=== PATIENT | female | born 1985 | race Two or more races ===

== ENCOUNTER → 2025-01-14 | Outpatient (CLI) | payer OTHER, SELFPAY ==
[2025-01-19 14:08] LABS: HPV APTIMA, High Risk Negative (Negative)
== END | disposition home or self-care (01) ==
LOC: LABSPEC 12:01
PROVIDERS: Referring Provider Nurse Practitioner Family; Visit Provider Nurse Practitioner Family
DX: Z12.4 Encounter for screening for malignant neoplasm of cervix (principal)
CPT/HCPCS: 87624; 88175; G0145

== ENCOUNTER → 2025-01-28 | Outpatient (CLI) | payer OTHER, SELFPAY ==
--- NOTE | 2025-01-28 12:15 | BI_ITS ---
EXAM: SCRN MAMM (CAD)W/YARITZA BILAT DATE: 01/28/2025 CLINICAL HISTORY: F, Age 39 y/o , SCREEN FOR BREAST CANCER TECHNIQUE: SCRN MAMM (CAD)W/YARITZA BILAT COMPARISON: Prior exam(s) dated 10/05/2023, 10/03/2023. FINDINGS: TISSUE DENSITY: The breasts are heterogeneously dense, which may obscure small masses. The mammogram demonstrates that the patient has dense breasts. Supplemental screening with whole breast ultrasound or MRI may be considered for further evaluation. Bilateral Breast Mammographic Findings: No significant masses, calcifications or other abnormalities are identified. BI/SCRN MAMM (CAD)W/YARITZA BILAT IMPRESSION: There is no mammographic evidence of malignancy. OVERALL FINAL ASSESSMENT BI-RADS 1: NEGATIVE. RECOMMENDATION: Routine annual follow-up in 1 Year A letter with findings and recommendations will be mailed to the patient. Reading Location: [id number]
--- OUTSIDE RECORDS SUMMARY | 2025-01-28 20:29 | XMS RPT_ITS | CCD ---
Author Organization [facility] Inform ion Partnership [facility] Care Team Providers Care Relaster Name Role Phone ADELFO VELASCO-KRISTY, FELISHA Newell Primary Care Physician GISELA VELASCO-CHRISTOPHER, ELISABETH Newell Attending [place] vailable ADELFO MONIQUEN-REFUGE MANAGER, FELISHA Newell Primary Care Unavai labshaun EMANUEL APRN-KRISTY, FELISHA Newell Attending Unavai lable ADELFO MONIQUEN-REFUGE MANAGER, FELISHA Newell Primary Care Unavai lable GISELA VELASCO-CHRISTOPHER, ELISABETH Newell Attending [place] vailable ADELFO MONIQUEN-REFUGE MANAGER, FELISHA Newell Primary Care Unavai lable Scarlett INMAN-Gosia Fuentes Attending Provider Scarlett HAT BAND ATTACHER-CGosia Referring Provider Gosia Pantoja Attending Unavailable Gosia Pantoja Referring Unavailable Gosia Pantoja Attending Unavailable Care Physician, No Primary Primary Care Unava ilable Gosia Pantoja Referring Unavailable Gosia Pantoja Attending Unavailable Allergies Allergy Classification Reported Allergen(s) Allergy Type Date of Onset Reaction(s) Facility (5 sources) Amoxicillin; Translations: [AMOXICILLIN] Drug Allergy 7 Weal (disorder) [facility] Repository (5 sources) Penicillins; Translations: [PENICILLINS] Propensity to adverse reactions to drug (disorder) 7 Hives [facility] Repository Medications Current Medications Medication Drug Class(es) Dates Sig (Normalized) Sig (Original) fexofenadine hydrochloride 180 mg oral tablet (3 sources) Histamine-1 Receptor Antagonist Start: 10-31-2024 take 1 tablet by mouth once daily Fexofenadine (Allergy Relief (Fexofenadine)) 180 mg tablet Active 180 mg PO daily October 31, 2024 12:00am Start: 05-14-2023 Maira 24 Ricci r Allergy oral tablet Dose : 180 mg = 1 tab(s), Oral, Daily, # 30 tab(s), 0 Refill(s) Start Date: 05/14/23 Status: Ordered Multivitamin tablet (2 sources) Start: 10-31-2024 Multivitamin t ablet Active 1 {tbl} PO EVERY MORNING October 31, 2024 12:00am One Daily Essential Multiple Vitamins with Minerals oral tablet (1 source) Start: 05-14-2023 take 1 tablet by mouth once daily One Daily Essential Multiple Vitamins with Minerals oral tablet Oral, qDay, 0 Refill(s) Start Date: 05/14/23 Status: Ordered Problems Problem Classification Problem Date Documented Da te Episodic/Chronic Other screening for suspected conditions (not mental disorders or infectious disease) (3 sources) Encounter for screening mammogram for malignant neoplasm of breast; Translations: [Encounter for screening for malignant neoplasm of cervix] Onset: 01-23-2025 Episodic Other upper respiratory disease (1 source) Allergic rhinitis 05-14-2023 Chronic Residual codes; unclassified (4 sources) Family history of breast cancer; Translations: [Family history of malignant neoplasm of breast] 01-14-2025 Episodic Comment on above: Triple (-) form. Residual codes; unclassified (1 source) Family history of malignant neoplasm of breast; Translations: [Family history of malignant neoplasm of breast] Onset: 01-26-2025 Episodic Unclassified (1 source) Breast feeding (infant) (observable entity) 10-23-2015 Comment on above: [facility] feeding Status documented as Yes on Admission Unclassified (1 source) Patient encounter status 05-14-2023 Results Test Name Value Interpretation Reference Range Facility PAP IG HPV APTIMA 16/18,45on 01-19-2025 ADEQ Comment Normal . [facility] Comment on above: Order Comment: Speci men Comment: [id number] Specimen Comment: No. of containers..01 ThinPrep Vial Result Comment: Sati sfactory for evaluation. Endocervical and/or squamous metaplastic cells (endocervical component) are present. Performed By: #### L 7400.0280 #### [facility] [place], [address] COMM . Normal . [facility] Comment on above: Order Comment: Speci men Comment: [id number] Specimen Comment: No. of containers..01 ThinPrep Vial Performed By: #### L 7400.0280 #### [facility] [address] [place], [place], [id number] COMMENT Comment Normal . [facility] Comment on above: Order Comment: Speci men Comment: [id number] Specimen Comment: No. of containers..01 ThinPrep Vial Result Comment: This liquid based ThinPrep(R) pap test was screened with the use of an image guided system. Performed By: #### L 7400.0280 #### [facility] [address] [place], [place], [id number] DIAG Comment Normal . [facility] Comment on above: Order Comment: Speci men Comment: [id number] Specimen Comment: No. of containers..01 ThinPrep Vial Result Comment: NEGA TIVE FOR INTRAEPITHELIAL LESION OR MALIGNANCY. THIS SPECIMEN WAS RESCREENED PART OF OUR TITLE I PARAPROFESSIONAL PROGRAM. Performed By: #### L 7400.0280 #### [facility] [address] [place], [place], [id number] HPV APTIMA, HR Negative Normal Negative [facility] Comment on above: Order Comment: Speci men Comment: [id number] Specimen Comment: No. of containers..01 ThinPrep Vial Result Comment: This nucleic acid amplification test detects fourteen high- risk HPV types (16,18,31,33,35,39,45,51,52,56,58,59,66,68) without differentiation. Performed By: #### L 7400.0280 #### [facility] [address] [place], [place], [id number] HPV Sue Rfx Comment Normal . [facility] Comment on above: Order Comment: Speci men Comment: [id number] Specimen Comment: No. of containers..01 ThinPrep Vial Result Comment: Crit eria not met, HPV Genotype not performed. Performed at: - [facility] [id number] Honey Producer: Caroline Enriquez MD, Phone: [phone] Performed at: = - [facility] [address] [facility], [place] [id number] Honey Producer: Caroline Enriquez MD, Phone: [phone] Performed By: #### L 7400.0280 #### [facility] [address] [place], [place], [address] PAPSMR Comment Normal . [facility] Comment on above: Order Comment: Speci men Comment: [id number] Specimen Comment: No. of containers..01 ThinPrep Vial Result Comment: The Pap smear is a screening test designed to aid in the detection of premalignant and malignant conditions of the uterine cervix. It is not a diagnostic procedure and should not be used as the sole means of detecting cervical cancer. Both false-positive and false-negative reports do occur. Performed By: #### L 7400.0280 #### [facility] [address] [place], [place], [id number] PERFORM Comment Normal . [facility] Comment on above: Order Comment: Speci men Comment: [id number] Specimen Comment: No. of containers..01 ThinPrep Vial Result Comment: Christina Marquez, Sprinkler Tender (ASCP) Performed By: #### L 7400.0280 #### [facility] [address] [place], [address] QC REV Comment Normal . [facility] Comment on above: Order Comment: Speci men Comment: [id number] Specimen Comment: No. of containers..01 ThinPrep Vial Result Comment: Bernard Echeverria, Sprinkler Tender (ASCP) Performed By: #### L 7400.0280 #### [facility] [address] [place], [address] Cervical or vaginal specimen microscopic examination by liquid based cytology (reportOrdered By: Gosia Pantoja on 01-14-2025 Cytology report Cyto stain.thin prep Doc (Cvx/Vag) Comment . [facility] Comment on above: Criteria not met, HP V Genotype not performed.Performed at: - [facility] [id number] Director: Caroline Enriquez MD, Phone: [phone] at: = - [facility] [id number] Director: Caroline Enriquez MD, Phone: [phone] Cervical or vagninal specime n microscopic examination by cytology stain (reported asOrdered By: Gosia Pantoja on 01-14-2025 Cytology report Cyto stain Doc (Cvx/Vag) Comment . [facility] Comment on above: The Pap smear is a s creening test designed to aid in thedetection of premalignant and malignant conditions of theuterine cervix. It is not a diagnostic procedure andshould not be used as the sole means of detecting cervicalcancer. Both false-positive and false-negative reports dooccur. Detection in cervical specim en of any of human papilloma virus (HPV) 16, 18, 31, 33,Ordered By: Gosia Pantoja on 01-14-2025 HPV 16+18+31+33+35+39+45+5 1+52+56+58+59+66+68 DNA Probe+sig amp Ql (Cvx) Negative Negative [facility] Comment on above: This nucleic acid am plification test detects fourteen high- risk HPV types (16,18,31,33,35,39,45,51,52,56,58,59,66,68)without differentiation. Laboratory - CytologyOrdered By: Gosia Pantoja on 01-14-2025 Sprinkler Tender Cyto stain Nom (Cvx/Vag) [ID] Comment . [facility] Comment on above: Gina Liu ytologist (ASCP) Laboratory - Miscellaneous t estsOrdered By: Gosia Pantoja on 01-14-2025 Service comment (Unsp spec) [Interp] . . [facility] No Panel InformationOrdered By: Gosia Pantoja on 01-14-2025 Pap Smear QC Review Comment . [facility] Comment on above: Emy Echeverria Cytoearl ogist (ASCP) Pap Smear Specimen Adequacy Comment . [facility] Comment on above: Satisfactory for shayy lugerson. Endocervical and/or squamous metaplasticcells (endocervical component) are present. 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 Putty Patcher Required: No Is patient in pain?: No Allergies amoxicillin Allergy (Intermediate, Verified 01/14/25 10:55) Hives Penicillins Allergy (Verified 01/14/25 10:55) Hives Medications ???Medication ???Instructions ???Recorded ???Confirmed ???Type fexofenadine 180 mg tablet 180 mg PO QDAY 10/31/24 01/14/25 H istory (Allergy Relief (fexofenadine)) multivitamin 1 tab PO QAM 10/31/24 01/14/25 His tory Is last menstrual period known: Yes Last Menstrual Period: 12/18/24 Post menopausal: No Patient : No : No Control Method: condoms [facility] Family History Mother Breast cancer, Onset Age: 58 CVA (cerebral vascular accident) Father Diabetes Grandmother Myocardial infarction Social History (Updated 01/14/25 @ 10:57 by Rossy Albert) adopted: No household members: spouse and children number of children: 2 current occupational status: employed 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 History 2 Elective abortions Hx Para 2 Spontaneous abortions Hx # Term Pregnancies Ectopic pregnancies Hx # Pregnancies Multiple births # of living children 2 Past Pregnancies Del. 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 She reports no issues or concerns today; she is here to establish care. Last PAP: unsure which year. History of abnormal PAP: none. Last mammogram: 2023; normal History of abnormal mammogram: no Colon cancer screening: age 44 Other preventative health care screenings: none--Working to establish currently. Female Reproductive History Last Menstrual Period: 12/18/24 Cycle Length: 21-35 Bleeding Duration: 5 Questions: metorrhagia: No, sexually active: Yes (condoms. ), dyspareunia: No and PCB: No ROS Const Constitutional: Denies chills, fatigue, fever(s), headache(s) or weight loss Eyes Eyes: Denies change in vision ENT ENT: Denies dizziness Cardio Card: Denies chest pain at rest or palpitations Resp Resp: Denies cough GI GI: Denies abdominal pain, constipation or nausea : Denies difficulty voiding, dysuria, hematuria, nipple discharge, pelvic pain, prolapse symptoms, urinary incontinence, vaginal discharge, vaginal dryness, vaginal odor or vaginal pruritus Skin Skin/Breast: Denies alopecia, rash, breast mass, breast pain, breast skin changes or nipple discharge Neuro Neuro: Denies dizziness Psych Psych: Denies anxiety or depression Endo Endo: Denies cold intolerance, excessive sweating or heat intolerance Exam Const General: cooperative, healthy appearing, comfortable, no acute distress, well groomed and well hydrated Nutritional Appearance: well nourished Orientation: alert, awake and oriented x3 HENMT Head: normal to inspection and normocephalic Ears: hearing grossly normal bilaterally and external ears normal Nose: external nose normal Face and sinus: normal facial exam Eyes General: appearance normal, both eyes and all related structures Neck Neck: normal visual inspection, full ROM and no lymphadenopathy Thyroid: thyroid normal Chest Chest palpation inspection: normal inspection of the chest Breast inspection: normal inspection of the breasts and normal inspection of the axillae Breast palpation: normal palpation of the breasts, normal palpation of the axillae and no axillary lymphadenopathy Resp Effort Inspection: normal respiratory effort, (more content not included)... Normal [facility] MAMMOGRAM DIAGNOSTIC RIGH Ton 10-05-2023 MA MAMMOGRAM DIAGNOSTIC RIGHT ORIGINAL FROM: [place] [address] PROCEDURE FOR: JOSE CATHERINE [address] [place] [id number] Home: PID#: [id number] Exam#: [id number] : 1985 Age: 37 TO: ELISABETH BLANCO TRAFFIC REPORTER REFUGE MANAGER [address] [facility] [address] [place] [address] EXAMINATION: DIAGNOSTIC DIGITAL RIGHT BREAST MAMMOGRAM, 10/05/2023 8:29 am TECHNIQUE: Diagnostic mammography of the right breast was performed. Computer aided detection was utilized in the interpretation of this exam. Current study was also evaluated with a Computer Aided Detection (CAD) system. COMPARISON: 10/03/2023 HISTORY: ORDERING SYSTEM PROVIDED HISTORY: Reason for Exam: Calcifications Right breast calcifications 7 o'clock FINDINGS: BREAST DENSITY: Heterogeneously dense There is a 3.2 cm region of round calcifications in the right breast at 7 o'clock middle depth. These are confirmed on additional views. No significant masses, calcifications, or other findings. IMPRESSION: The 3.2 cm region of round calcifications in the right breast at 7 o'clock appear benign. These do not require dedicated imaging follow-up. The patient may return to annual mammographic screening. Han Locke risk calculations, generated with the history provided, report this patient's 10 year risk and lifetime risk for developing breast cancer at 2.6% and 23.7%, respectively. Based on this assessment tool, if the patient's calculated lifetime risk is below 20%, then the patient is considered at average risk for developing breast cancer. If the patient's calculated lifetime risk is at or above 20%, then the patient is considered high risk for developing breast cancer and may be a candidate for supplemental breast MRI screening in addition to annual mammographic screening per the [place] [employer]. BIRADS: MAMMOGRAM BI-RADS: 2: Benign finding RECALL: return to screening RECALL TYPE: mammo LETTER SENT: Normal BI-RADS 1 and 2 Interpreted by: Moy Sharif MD Preliminary Report By: Moy Sharif MD Electronically signed By Moy Sharif MD Dictated Date: 10/05/2023 8:47:50 AM Prelim Date: 10/05/2023 8:49:53 AM Sign Date: 10/05/2023 8:49:53 AM Ordering Provider: ELISABETH BLANCO CLINICAL: CALCIFICATIONS RIGHT BREAST. Regulatory Compliance Director: RICKI BALLARD RT(R)(M)(CT) BALL WORKER letter sent: Normal BI-RADS 1 and 2 Mammogram BI-RADS: 2 Benign Normal [facility] ([place] [place] MAMMOGRAM SCREENING BILAT ERAL W/TOMOon 10-03-2023 MA MAMMOGRAM SCREENING BILATERAL W/YARITZA ORIGINAL FROM: [address] [address] PROCEDURE FOR: JOSE CATHERINE [address] [place] [address] Home: PID#: [id number] Exam#: [id number] : 1985 Age: 37 TO: ELISABETH BLANCO APRN REFUGE MANAGER [address] [address] EXAMINATION: SCREENING DIGITAL BILATERAL MAMMOGRAM WITH TOMOSYNTHESIS, 10/03/2023 2:53 pm TECHNIQUE: Screening mammography of the bilateral breasts was performed with tomosynthesis. 2D standard and 3D tomosynthesis combination imaging performed through both breasts in the MLO and CC projection. Computer aided detection was utilized in the interpretation of this exam. COMPARISON: None. Baseline exam HISTORY: Breast cancer screening. FINDINGS: BREAST DENSITY: Heterogeneously dense There are indeterminate calcifications in the posterior right breast at approximately 7 o'clock. There is no suspicious mass architectural distortion or microcalcification in the left breast. IMPRESSION: The calcifications in the right breast at 7 o'clock appear indeterminate. Additional views including magnification CC, magnification ML, and a full field ML view are recommended. We will contact the patient to arrange for the exam. Consider supplemental annual breast MRI screening given elevated lifetime risk of breast cancer. Han Locke risk calculations, generated with the history provided, report this patient's 10 year risk and lifetime risk for developing breast cancer at 2.6% and 23.7%, respectively. Based on this assessment tool, if the patient's calculated lifetime risk is below 20%, then the patient is considered at average risk for developing breast cancer. If the patient's calculated lifetime risk is at or above 20%, then the patient is considered high risk for developing breast cancer and may be a candidate for supplemental breast MRI screening in addition to annual mammographic screening per the [place] [employer]. BIRADS: MAMMOGRAM BI-RADS: 0: Needs addl evaluation RECALL: immediate RECALL TYPE: LETTER SENT: Abnormal-Needs additional work up BI-RADS 0 Interpreted by: Ella Mckee Preliminary Report By: Ella Mckee Electronically signed By Ella Mckee Dictated Date: 10/03/2023 3:42:19 PM Prelim Date: 10/03/2023 3:46:42 PM Sign Date: 10/03/2023 3:46:42 PM Ordering Provider: ELISABETH BLANCO CLINICAL: BASELINE. Regulatory Compliance Director: RICKI BALLARD RT(R)(M)(CT) BALL WORKER letter sent: Abnormal-Needs additional work up BI-RADS 0 Mammogram BI-RADS: 0 Indeterminate Normal [facility] .Auto Diffon 05-18-2023 Basophil, Absolute 0.0 10 3/mcL Normal 0.0-0.2 [facility] ([place]) Comment on above: Performed By: #### H CV1 #### [place] [address] #### CBC, ADIFF, ANEU, TSH, CMP, GFR, LIPID #### [address] [address] Basophils/100 WBC (Bld) 0.7 % Normal 0.0-2.5 [facility] ([place] Comment on above: Performed By: #### H CV1 #### [place] [address] #### CBC, ADIFF, ANEU, TSH, CMP, GFR, LIPID #### [address] [address] Eosinophil, Absolute 0.1 10 3/mcL Normal 0.0-0.4 [facility] ([place]) Comment on above: Performed By: #### H CV1 #### [place] [address] #### CBC, ADIFF, ANEU, TSH, CMP, GFR, LIPID #### [address] [address] Eosinophils/100 WBC (Bld) 1.5 % Normal 0.0-7.0 [facility] ([place] Comment on above: Performed By: #### H CV1 #### [place] [address] #### CBC, ADIFF, ANEU, TSH, CMP, GFR, LIPID #### [address] [address] Lymphocyte, Absolute 2.1 10 3/mcL Normal 0.8-3.9 [facility] ([place]) Comment on above: Performed By: #### H CV1 #### [place] [address] #### CBC, ADIFF, ANEU, TSH, CMP, GFR, LIPID #### [address] [address] Lymphocytes/100 WBC (Bld) 33.1 % Normal 10.0-50.0 [facility] ([place] Comment on above: Performed By: #### H CV1 #### [place] [address] #### CBC, ADIFF, ANEU, TSH, CMP, GFR, LIPID #### [address] [address] Monocyte, Absolute 0.4 10 3/mcL Normal 0.2-1.0 [facility] ([place]) Comment on above: Performed By: #### H CV1 #### [place] [address] #### CBC, ADIFF, ANEU, TSH, CMP, GFR, LIPID #### [address] [address] Monocytes/100 WBC (Bld) 6.7 % Normal 1.7-13.0 [facility] ([place] Comment on above: Performed By: #### H CV1 #### [place] [address] #### CBC, ADIFF, ANEU, TSH, CMP, GFR, LIPID #### [address] [address] Neutrophils/100 WBC (Bld) 58.0 % Normal 37.0-80.0 [facility] ([place] Comment on above: Performed By: #### H CV1 #### [place] [address] #### CBC, ADIFF, ANEU, TSH, CMP, GFR, LIPID #### [address] [address] .GFRon 05-18-2023 GFR 90 ml/min/1.73sqm Normal [facility] ([place] Comment on above: Result Comment: GFR Population mean for , Non- Americans Ages 20-29 = 116 mL/min/1.73 sq.m. Ages 30-39 = 107 mL/min/1.73 sq.m. Ages 40-49 = 99 mL/min/1.73 sq.m. Ages 50-59 = 93 mL/min/1.73 sq.m. Ages 60-69 = 85 mL/min/1.73 sq.m. Ages 70+ = 75 mL/min/1.73 sq.m. Chronic Kidney Disease: Less than 60 mL/min/1.73 square meters End Stage Renal Disease: Less than 15 mL/min/1.73 square meters Performed By: #### H CV1 #### [address] [address] #### CBC, ADIFF, ANEU, TSH, CMP, GFR, LIPID #### [address] [address] GFR Non- 74 ml/min/1.73sqm Normal [facility] ([place] Comment on above: Result Comment: GFR Population mean for , Non- Americans Ages 20-29 = 116 mL/min/1.73 sq.m. Ages 30-39 = 107 mL/min/1.73 sq.m. Ages 40-49 = 99 mL/min/1.73 sq.m. Ages 50-59 = 93 mL/min/1.73 sq.m. Ages 60-69 = 85 mL/min/1.73 sq.m. Ages 70+ = 75 mL/min/1.73 sq.m. Chronic Kidney Disease: Less than 60 mL/min/1.73 square meters End Stage Renal Disease: Less than 15 mL/min/1.73 square meters Performed By: #### H CV1 #### [address] [address] #### CBC, ADIFF, ANEU, TSH, CMP, GFR, LIPID #### [address] [address] .NEUABSon 05-18-2023 Neutrophil, Absolute 3.7 10 3/mcL Normal 2.9-6.2 [facility] ([place] Comment on above: Performed By: #### H CV1 #### [address] [address] #### CBC, ADIFF, ANEU, TSH, CMP, GFR, LIPID #### [address] [address] CBCon 05-18-2023 Erythrocyte distribution width (RBC) [Ratio] 12.6 % Normal 11.5-14.5 [facility] ([place] Comment on above: Performed By: #### H CV1 #### [place] [address] #### CBC, ADIFF, ANEU, TSH, CMP, GFR, LIPID #### [address] [address] Hematocrit (Bld) [Volume fraction] 34.6 % Low 37.0-47.0 [facility] ([place] Comment on above: Performed By: #### H CV1 #### [place] [address] #### CBC, ADIFF, ANEU, TSH, CMP, GFR, LIPID #### [place] [address] Hgb 11.9 G/dL Low 12.0-16.0 [facility] ([place] Comment on above: Performed By: #### H CV1 #### [place] [address] #### CBC, ADIFF, ANEU, TSH, CMP, GFR, LIPID #### [address] [address] MCH (RBC) [Entitic mass] 31.6 pg High 27.0-31.2 [facility] ([place] Comment on above: Performed By: #### H CV1 #### [place] [address] #### CBC, ADIFF, ANEU, TSH, CMP, GFR, LIPID #### [address] [address] MCHC 34.5 G/dL Normal 33.0-37.0 [facility] ([place] Comment on above: Performed By: #### H CV1 #### [place] [address] #### CBC, ADIFF, ANEU, TSH, CMP, GFR, LIPID #### [address] [address] MCV (RBC) [Entitic vol] 91.6 fL Normal 80.0-94.0 [facility] ([place] Comment on above: Performed By: #### H CV1 #### [place] [address] #### CBC, ADIFF, ANEU, TSH, CMP, GFR, LIPID #### [address] [address] [address] Platelet 352 10 3/mcL Normal 130-400 [facility] ([place]) Comment on above: Performed By: #### H CV1 #### [place] [address] #### CBC, ADIFF, ANEU, TSH, CMP, GFR, LIPID #### [address] [address] Platelet mean volume (Bld) [Entitic vol] 8.8 fL Normal 7.4-10.4 [facility] ([place] Comment on above: Performed By: #### H CV1 #### [place] [address] #### CBC, ADIFF, ANEU, TSH, CMP, GFR, LIPID #### [address] [address] RBC 3.78 10 6/mcL Low 4.20-5.40 [facility] ([place] Comment on above: Performed By: #### H CV1 #### [place] [address] #### CBC, ADIFF, ANEU, TSH, CMP, GFR, LIPID #### [address] [address] WBC 6.4 10 3/mcL Normal 4.6-10.8 [facility] ([place] Comment on above: Performed By: #### H CV1 #### [place] [address] #### CBC, ADIFF, ANEU, TSH, CMP, GFR, LIPID #### [address] [address] CMPon 05-18-2023 Albumin Level 4.1 G/dL Normal 3.5-5.0 [facility] ([place] Comment on above: Performed By: #### H CV1 #### [place] [address] #### CBC, ADIFF, ANEU, TSH, CMP, GFR, LIPID #### [address] [address] Albumin/Globulin [Mass ratio] 1.2 {ratio} Normal 1.1-2.5 [facility] ([place] Comment on above: Performed By: #### H CV1 #### [place] [address] #### CBC, ADIFF, ANEU, TSH, CMP, GFR, LIPID #### [address] [address] ALP [Catalytic activity/Vol] 50 U/L Normal 40-135 [facility] ([place] Comment on above: Performed By: #### H CV1 #### [place] [address] #### CBC, ADIFF, ANEU, TSH, CMP, GFR, LIPID #### [address] [address] ALT [Catalytic activity/Vol] 20 U/L Normal 14-59 [facility] ([place] Comment on above: Performed By: #### H CV1 #### [place] [address] #### CBC, ADIFF, ANEU, TSH, CMP, GFR, LIPID #### [address] [address] AST [Catalytic activity/Vol] 27 U/L Normal 10-40 [facility] ([place] Comment on above: Performed By: #### H CV1 #### [place] [address] #### CBC, ADIFF, ANEU, TSH, CMP, GFR, LIPID #### [address] [address] Bili Total 0.8 mg/dL Normal 0.2-1.0 [facility] ([place] Comment on above: Result Comment: Use of this assay is not recommended for patients undergoing treatment with eltrombopag due to the potential for falsely elevated results. Performed By: #### H CV1 #### [place] [address] #### CBC, ADIFF, ANEU, TSH, CMP, GFR, LIPID #### [address] [address] BUN/Creatinine Ratio 13 ratio Normal 7-27 [facility] ([place]) Comment on above: Performed By: #### H CV1 #### [place] [address] #### CBC, ADIFF, ANEU, TSH, CMP, GFR, LIPID #### [address] [address] Calcium [Mass/Vol] 9.2 mg/dL Normal 8.4-10.2 [facility] ([place] Comment on above: Performed By: #### H CV1 #### [place] [address] #### CBC, ADIFF, ANEU, TSH, CMP, GFR, LIPID #### [address] [address] Chloride [Moles/Vol] 100 mmol/L Normal 98-107 [facility] ([place]) Comment on above: Performed By: #### H CV1 #### [place] [address] #### CBC, ADIFF, ANEU, TSH, CMP, GFR, LIPID #### [address] [address] CO2 [Moles/Vol] 25 mmol/L Normal 22-29 [facility] ([place] Comment on above: Performed By: #### H CV1 #### [place] [address] #### CBC, ADIFF, ANEU, TSH, CMP, GFR, LIPID #### [address] [address] Creatinine [Mass/Vol] 0.86 mg/dL Normal 0.55-1.02 [facility] ([place] Comment on above: Performed By: #### H CV1 #### [address] [address] #### CBC, ADIFF, ANEU, TSH, CMP, GFR, LIPID #### [address] [address] Electrolyte Balance 11.0 mEq/L Normal 4.0-15.0 [facility] ([place]) Comment on above: Performed By: #### H CV1 #### [place] [address] #### CBC, ADIFF, ANEU, TSH, CMP, GFR, LIPID #### [address] [address] Globulin 3.5 G/dL Normal [facility] ([place] Comment on above: Performed By: #### H CV1 #### [place] [address] #### CBC, ADIFF, ANEU, TSH, CMP, GFR, LIPID #### [address] [address] Glucose [Mass/Vol] 106 mg/dL High 70-105 [facility] ([place] Comment on above: Performed By: #### H CV1 #### [place] [address] #### CBC, ADIFF, ANEU, TSH, CMP, GFR, LIPID #### [address] [address] Potassium [Moles/Vol] 4.2 mmol/L Normal 3.5-5.1 [facility] ([place] Comment on above: Performed By: #### H CV1 #### [place] [address] #### CBC, ADIFF, ANEU, TSH, CMP, GFR, LIPID #### [address] [address] Sodium [Moles/Vol] 136 mmol/L Normal 136-145 [facility] ([place] Comment on above: Performed By: #### H CV1 #### [place] [address] #### CBC, ADIFF, ANEU, TSH, CMP, GFR, LIPID #### [address] [address] Total Protein 7.6 G/dL Normal 6.4-8.2 [facility] ([place] Comment on above: Performed By: #### H CV1 #### [place] [address] #### CBC, ADIFF, ANEU, TSH, CMP, GFR, LIPID #### [place] [id number] Urea nitrogen [Mass/Vol] 11 mg/dL Normal 7-18 [facility] ([place] Comment on above: Performed By: #### H CV1 #### [place] [address] #### CBC, ADIFF, ANEU, TSH, CMP, GFR, LIPID #### [place] [id number] HCVon 05-18-2023 Hep C Ab Non-Reactive Normal Non-Reactive [facility] ([place] Comment on above: Performed By: #### H CV1 #### [place] [address] #### CBC, ADIFF, ANEU, TSH, CMP, GFR, LIPID #### [place] [id number] Hep C Ab Int Normal [facility] ([place] Comment on above: Result Comment: Nonr eactive: Samples with a value < 0.80 are considered nonreactive (negative) for antibodies to HCV. A negative test result does not exclude the possibility of exposure to or infection with HCV. HCV antibodies may be undetectable in some stages of the infection and in some clinical conditions. See Interp Performed By: #### H CV1 #### [place] [address] #### CBC, ADIFF, ANEU, TSH, CMP, GFR, LIPID #### [address] [address] LABORATORYOrdered By: SYSTEM SYSTEM on 05-18-2023 Albumin BCP dye [Mass/Vol] 4.1 G/dL Normal 3.5 - 5.0 G/dL AO ADM SS Albumin/Globulin [Mass ratio] 1.2 {ratio} Normal 1.1 - 2.5 ratio AO ADM SS ALP [Catalytic activity/Vol] 50 U/L Normal 40 - 135 U/L AO ADM SS ALT With P-5'-P [Catalytic activity/Vol] 20 U/L Normal 14 - 59 U/L AO ADM SS AST With P-5'-P [Catalytic activity/Vol] 27 U/L Normal 10 - 40 U/L AO ADM SS Basophil, Absolute 0.0 103/mcL Normal 0.0 - 0.2 10^3/mcL AO Workflow SS Basophils/100 WBC (Bld) 0.7 % Normal 0.0 - 2.5 % AO Workflow SS Bilirubin [Mass/Vol] 0.8 mg/dL Normal 0.2 - 1 .0 mg/dL AO ADM SS Comment on above: Interpretive Data: U se of this assay is not recommended for patients undergoing treatment with eltrombopag due to the potential for falsely elevated results. Calcium [Mass/Vol] 9.2 mg/dL Normal 8.4 - 10. 2 mg/dL AO ADM SS Chloride [Moles/Vol] 100 mmol/L Normal 98 - 10 7 mmol/L AO ADM SS CO2 [Moles/Vol] 25 mmol/L Normal 22 - 29 mmol/L AO ADM SS Creatinine [Mass/Vol] 0.86 mg/dL Normal 0.55 - 1.02 mg/dL AO ADM SS Electrolyte Balance 11.0 mEq/L Normal 4.0 - 15 .0 mEq/L AO ADM SS Eosinophil, Absolute 0.1 103/mcL Normal 0.0 - 0 .4 10^3/mcL AO Workflow SS Eosinophils/100 WBC (Bld) 1.5 % Normal 0.0 - 7.0 % AO Workflow SS Erythrocyte distribution width (RBC) [Ratio] 12.6 % Normal 11.5 - 14.5 % AO Workflow SS GFR/1.73 sq M.predicted among blacks MDRD (S/P/Bld) [Vol rate/Area] 90 ml/min/1.73sqm Invalid Interpretation Code AO Chemistry S Comment on above: Interpretive Data: GFR Population mean for , Non- Americans Ages 20-29 = 116 mL/min/1.73 sq.m. Ages 30-39 = 107 mL/min/1.73 sq.m. Ages 40-49 = 99 mL/min/1.73 sq.m. Ages 50-59 = 93 mL/min/1.73 sq.m. Ages 60-69 = 85 mL/min/1.73 sq.m. Ages 70+ = 75 mL/min/1.73 sq.m. Chronic Kidney Disease: Less than 60 mL/min/1.73 square meters End Stage Renal Disease: Less than 15 mL/min/1.73 square meters GFR/1.73 sq M.predicted among non-blacks MDRD (S/P/Bld) [Vol rate/Area] 74 ml/min/1.73sqm Invalid Interpretation Code AO Chemistry S Comment on above: Interpretive Data: GFR Population mean for , Non- Americans Ages 20-29 = 116 mL/min/1.73 sq.m. Ages 30-39 = 107 mL/min/1.73 sq.m. Ages 40-49 = 99 mL/min/1.73 sq.m. Ages 50-59 = 93 mL/min/1.73 sq.m. Ages 60-69 = 85 mL/min/1.73 sq.m. Ages 70+ = 75 mL/min/1.73 sq.m. Chronic Kidney Disease: Less than 60 mL/min/1.73 square meters End Stage Renal Disease: Less than 15 mL/min/1.73 square meters Globulin 3.5 G/dL Invalid Interpretation Code AO ADM SS Glucose [Mass/Vol] 106 mg/dL High 70 - 105 mg/dL AO ADM SS Hematocrit (Bld) [Volume fraction] 34.6 % Low 37.0 - 47.0 % AO Workflow SS Hemoglobin (Bld) [Mass/Vol] 11.9 G/dL Low 12.0 - 16.0 G/dL AO Workflow SS Lymphocyte, Absolute 2.1 103/mcL Normal 0.8 - 3 .9 10^3/mcL AO Workflow SS Lymphocytes/100 WBC (Bld) 33.1 % Normal 10.0 - 50.0 % AO Workflow SS MCH (RBC) [Entitic mass] 31.6 pg High 27.0 - 31.2 pg AO Workflow SS MCHC 34.5 G/dL Normal 33.0 - 37.0 G/dL AO Workflow SS MCV (RBC) [Entitic vol] 91.6 fL Normal 80.0 - 94.0 fL AO Workflow SS Monocyte, Absolute 0.4 103/mcL Normal 0.2 - 1.0 10^3/mcL AO Workflow SS Monocytes/100 WBC (Bld) 6.7 % Normal 1.7 - 13.0 % AO Workflow SS Neutrophil, Absolute 3.7 103/mcL Normal 2.9 - 6 .2 10^3/mcL AO Workflow SS Neutrophils/100 WBC (Bld) 58.0 % Normal 37.0 - 80.0 % AO Workflow SS Platelet mean volume (Bld) [Entitic vol] 8.8 fL Normal 7.4 - 10.4 fL AO Workflow SS Platelets (Bld) [#/Vol] 352 103/mcL Normal 130 - 400 10^3/mcL AO Workflow SS Potassium [Moles/Vol] 4.2 mmol/L Normal 3.5 - 5.1 mmol/L AO ADM SS Protein [Mass/Vol] 7.6 G/dL Normal 6.4 - 8.2 G/dL AO ADM SS RBC (Bld) [#/Vol] 3.78 106/mcL Low 4.20 - 5.4 0 10^6/mcL AO Workflow SS Sodium [Moles/Vol] 136 mmol/L Normal 136 - 145 mmol/L AO ADM SS TSH Qn 1.59 m[IU]/L Normal 0.36 - 3.74 mcIU/mL AO ADM SS Urea nitrogen [Mass/Vol] 11 mg/dL Normal 7 - 18 mg/dL AO ADM SS Urea nitrogen/Creatinine [Mass ratio] 13 ratio Normal 7 - 27 ratio AO ADM SS WBC (Bld) [#/Vol] 6.4 103/mcL Normal 4.6 - 10.8 10^3/mcL AO Workflow SS LABORATORYOrdered By: Gabby Geiger on 05-18-2023 Cholesterol [Mass/Vol] 182 mg/dL Normal 0 - 2 00 mg/dL AO ADM SS Comment on above: Interpretive Data: C holesterol Reference Interval: Less than 200 Desirable 200-239 Borderline high risk 240 and above High risk Cholesterol in HDL [Mass/Vol] 68 mg/dL High 40 - 60 mg/dL AO ADM SS Cholesterol in LDL [Mass/Vol] 101 mg/dL Normal 0 - 130 mg/dL AO ADM SS Triglyceride [Mass/Vol] 66 mg/dL Normal 0 - 150 mg/dL AO ADM SS Comment on above: Interpretive Data: T riglyceride Reference Interval: Less than 150 Normal 150-199 Borderline high risk 200-499 High risk 500 or higher Very high risk LABORATORYOrdered By: Jose Ramon Hernandez on 05-18-2023 HCV Ab IA Ql Non-Reactive (05/18/23 8:46 AM) Normal Non-Reactive AH ADM SS HCV Ab IA Ql Nonreactive: Samples with a value < 0.80 are considered nonreactive (negative) for antibodies to HCV.A negative test result does not exclude the possibility of exposure to or infection with HCV. HCV antibodies may be undetectable in some stages of the infection and in some clinical conditions. Invalid Interpretation Code Chemistry S LIPIDon 05-18-2023 Cholesterol [Mass/Vol] 182 mg/dL Normal 0-200 [facility] ([place]) Comment on above: Result Comment: Chol esterol Reference Interval: Less than 200 Desirable 200-239 Borderline high risk 240 and above High risk Performed By: #### H CV1 #### [place] [address] #### CBC, ADIFF, ANEU, TSH, CMP, GFR, LIPID #### [address] [address] Cholesterol in HDL [Mass/Vol] 68 mg/dL High 40-60 [facility] ([place] Comment on above: Performed By: #### H CV1 #### [address] [address] #### CBC, ADIFF, ANEU, TSH, CMP, GFR, LIPID #### [address] [address] Cholesterol in LDL [Mass/Vol] 101 mg/dL Normal 0-130 [facility] ([place] Comment on above: Performed By: #### H CV1 #### [address] [address] #### CBC, ADIFF, ANEU, TSH, CMP, GFR, LIPID #### [address] [address] Triglyceride [Mass/Vol] 66 mg/dL Normal 0-150 [facility] ([place] Comment on above: Result Comment: Trig lyceride Reference Interval: Less than 150 Normal 150-199 Borderline high risk 200-499 High risk 500 or higher Very high risk Performed By: #### H CV1 #### [address] [address] #### CBC, ADIFF, ANEU, TSH, CMP, GFR, LIPID #### [place] [address] [place], [place] [address] TSHon 05-18-2023 TSH Qn 1.59 m[IU]/L Normal 0.36-3.74 [facility] ([place]) Comment on above: Performed By: #### H CV1 #### [address] [address] #### CBC, ADIFF, ANEU, TSH, CMP, GFR, LIPID #### [place] [address] [place], [place] [address] CNOVon 08-08-2018 CNOV Office Visit (UCWSTR ) JOSE CATHERINE ([id number]) 1985 F Date Time Provider Department 08/08/18 6:00 PM [facility] SHELTON[facility] During your visit today, we recorded the following information about you: Temperature Pulse Respiration Blood pressure 98.4 degrees 95/minute 16/minute 120/82 Weight 57.8 kg Anne-Marie Shelton PA-C 08/08/2018 6:41 PM Signed Subjective HPI Patient presents with the chief complaint of sinus pressure and pain over the past 3 weeks. She states she had a cold that she had gotten from her daughter that have improved however the past week her sinus pressure and pain worsened. She states her teeth hurt. She is felt slightly dizzy from time to time in her ears feel full. No fever. She states she has had sinus infections in the past but not in several years. She used to see ENT for allergies and sinus infections. Review of Systems Constitutional: Negative. Negative for chills and fever. HENT: Positive for congestion, ear pain and sinus pain. Eyes: Negative. Respiratory: Negative for cough. Cardiovascular: Negative for chest pain. Gastrointestinal: Negative. Genitourinary: Negative. Skin: Negative. Neurological: Positive for dizziness and headaches. All other systems reviewed and are negative. No past medical history on file. Current Outpatient Prescriptions: Norethindrone Acet-Ethinyl Est (LOESTRIN 1.5, ,) 1.5-30 mg-mcg tab Take by mouth. Disp: Rfl: doxycycline (VIBRA-TABS) 100 mg tablet Take 1 tablet by mouth twice daily for 10 days. Disp: 20 tablet Rfl: 0 No current facility-administered medications for this visit. No past surgical history on file. No family history on file. Social History Substance Use Topics - Smoking status: Never Smoker - Smokeless tobacco: Never Used - Alcohol use Not on file BP 120/82 Pulse 95 Temp 36.9 ?C (98.4 ?F) (Left Tympanic) Resp 16 Wt 57.8 kg (127 lb 6.4 oz) SpO2 100% Objective Physical Exam Constitutional: She is oriented to person, place, and time and well-developed, well-nourished, and in no distress. HENT: Head: Normocephalic and atraumatic. Right Ear: Tympanic membrane, external ear and ear canal normal. Left Ear: Tympanic membrane, external ear and ear canal normal. Nose: Mucosal edema and rhinorrhea present. Right sinus exhibits maxillary sinus tenderness. Left sinus exhibits maxillary sinus tenderness. Mouth/Throat: Uvula is midline, oropharynx is clear and moist and mucous membranes are normal. Neck: Normal range of motion. Neck supple. Cardiovascular: Normal rate, regular rhythm and normal heart sounds. Pulmonary/Chest: Effort normal and breath sounds normal. Neurological: She is alert and oriented to person, place, and time. Skin: Skin is warm and dry. No rash noted. Psychiatric: Affect and judgment normal. Nursing note and vitals reviewed. ASSESSMENT/PLAN: 1. Acute non-recurrent maxillary sinusitis - ICD9: 461.0, ICD10: J01.00 - Will begin treatment with Doxycline - The patient should also be given OTC decongestants prn for the first 5-7 days of treatment. - Supportive care with plenty of fluids, rest, and analgesia prn. - Follow up in one week if symptoms persist or worsen. - DOXYCYCLINE HYCLATE 100 MG TABLET Anne-Marie Shelton PA-C Referring Provider: SELF [200] Allergies As of Date: 08/08/2018 Noted Allergy Reaction AMOXICILLIN 05/10/2017 4 - Hives PENICILLINS 05/10/2017 4 - Hives Date Reviewed: 08/08/2018 Reviewed by: Wilma Stewart Ma - Fully Assessed Reason for Visit: Sinusitis [127] Cmt: x 3 weeks Reason For Visit History Recorded Primary Visit Diagnosis:Acute non-recurrent maxillary sinusitis [J01.00] Order(s):doxycycline (VIBRA-TABS) 100 mg tabletTake 1 tablet by mouth twice daily for 10 days.Disp: 20 tabletRfl: 0 Prescriptions as of 08/08/2018 Sig: NORETHINDRONE ACETATE-ETHINYL* Take by mouth. DOXYCYCLINE HYCLATE 100 MG TA* Take 1 tablet by mouth twice * Problem List As Of Date: 08/08/2018 (None) Prescriptions ordered this encounter Disp Refills Start End DOXYCYCLINE HYCLATE 100 MG TABLET 20 t* 0 08/08/2018 08/18/2018 Route: ORAL Sig: Take 1 tablet by mouth twice daily for 10 days. Encounter Status:Closed by ANNE-MARIE SHELTON PA-C on 08/08/18 Normal [facility] PROGRESSon 08-08-2018 Protein mass conc HNO ID: [id number] Author: Anne-Marie Shelton (Pa) Service: (none) Author Type: Physician Welding Pantograph Operator Type: Progress Notes Filed: 08/08/2018 6:41 PM Note Text: Subjective HPI Patient presents with the chief complaint of sinus pressure and pain over the past 3 weeks. She states she had a cold that she had gotten from her daughter that have improved however the past week her sinus pressure and pain worsened. She states her teeth hurt. She is felt slightly dizzy from time to time in her ears feel full. No fever. She states she has had sinus infections in the past but not in several years. She used to see ENT for allergies and sinus infections. Review of Systems Constitutional: Negative. Negative for chills and fever. HENT: Positive for congestion, ear pain and sinus pain. Eyes: Negative. Respiratory: Negative for cough. Cardiovascular: Negative for chest pain. Gastrointestinal: Negative. Genitourinary: Negative. Skin: Negative. Neurological: Positive for dizziness and headaches. All other systems reviewed and are negative. No past medical history on file. Current Outpatient Prescriptions: Norethindrone Acet-Ethinyl Est (LOESTRIN 1.5/30, 21,) 1.5-30 mg-mcg tab Take by mouth. Disp: Rfl: doxycycline (VIBRA-TABS) 100 mg tablet Take 1 tablet by mouth twice daily for 10 days. Disp: 20 tablet Rfl: 0 No current facility-administered medications for this visit. No past surgical history on file. No family history on file. Social History Substance Use Topics - Smoking status: Never Smoker - Smokeless tobacco: Never Used - Alcohol use Not on file BP 120/82 Pulse 95 Temp 36.9 ?C (98.4 ?F) (Left Tympanic) Resp 16 Wt 57.8 kg (127 lb 6.4 oz) SpO2 100% Objective Physical Exam Constitutional: She is oriented to person, place, and time and well-developed, well-nourished, and in no distress. HENT: Head: Normocephalic and atraumatic. Right Ear: Tympanic membrane, external ear and ear canal normal. Left Ear: Tympanic membrane, external ear and ear canal normal. Nose: Mucosal edema and rhinorrhea present. Right sinus exhibits maxillary sinus tenderness. Left sinus exhibits maxillary sinus tenderness. Mouth/Throat: Uvula is midline, oropharynx is clear and moist and mucous membranes are normal. Neck: Normal range of motion. Neck supple. Cardiovascular: Normal rate, regular rhythm and normal heart sounds. Pulmonary/Chest: Effort normal and breath sounds normal. Neurological: She is alert and oriented to person, place, and time. Skin: Skin is warm and dry. No rash noted. Psychiatric: Affect and judgment normal. Nursing note and vitals reviewed. ASSESSMENT/PLAN: 1. Acute non-recurrent maxillary sinusitis - ICD9: 461.0, ICD10: J01.00 - Will begin treatment with Doxycline - The patient should also be given OTC decongestants prn for the first 5-7 days of treatment. - Supportive care with plenty of fluids, rest, and analgesia prn. - Follow up in one week if symptoms persist or worsen. - DOXYCYCLINE HYCLATE 100 MG TABLET Anne-Marie Shelton PA-C Normal [facility] Vital Signs Date Time Vital Sign Value Performing Clinician Lydia paty 01-14-2025 11:01-0400 Body height 167.64 cm Gosia Pantoja NP-C Work Phone: [facility] 01-14-2025 11:01-0400 Body mass index (BMI) [Ratio] 20.2 kg/m2 Gosia Pantoja NP-C Work Phone: [facility] 01-14-2025 11:01-0400 Body weight 56.86 kg Gosia Pantoja NP-C Work Phone: [facility] 01-14-2025 11:01-0400 Diastolic blood pressure 82 mm[Hg] Gosia Pantoja HAT BAND ATTACHER-C Work Phone: [facility] 01-14-2025 11:01-0400 Systolic blood pressure 124 mm[Hg] Gosia Pantoja HAT BAND ATTACHER-C Work Phone: [facility] Encounters Encounter Date Encounter Type Care Provider Facility Start: 01-28-2025 ambulatory No Primary Car pete Physician Facility:[facility] Start: 01-26-2025 Encounter for gynecological examination (general) (routine) without abnormal [facility] Start: 01-14-2025 End: 01-14-2025 ambulatory Gosia MERCEDESC Work Phone: -Laboratory Specimen Start: 01-14-2025 End: 01-14-2025 Patient encounter procedure Gosia SANDOVAL -Laboratory Specimen Work Phone: Start: 01-14-2025 End: 01-14-2025 Patient encounter procedure Gosia SANDOVAL -[facility] Work Phone: Start: 01-14-2025 End: 01-14-2025 ambulatory Gosia Pantoja -[facility] Start: 01-14-2025 End: 01-14-2025 ambulatory Gosia Pantoja Facility:[facility] Start: 10-05-2023 End: 10-06-2023 ambulatory ELISABETH BLANCO TRAFFIC REPORTER-CNM Facility:B Start: 10-03-2023 End: 10-04-2023 ambulatory ELISABETH BLANCO TRAFFIC REPORTER-CNM Facility:B Start: 05-18-2023 End: 05-19-2023 ambulatory FELISHA EMANUEL TRAFFIC REPORTER-REFUGE MANAGER Facility:B Start: 05-18-2023 End: 05-18-2023 Patient encounter procedure FELISHA Newell EMANUEL TRAFFIC REPORTER-REFUGE MANAGER [facility] Start: 08-08-2018 End: 08-09-2018 Patient encounter procedure [facility] Procedures Date Procedure Procedure Detail Performing Clinician Start: 01-14-2025 Liquid based cervica l cytology screening Gosia Pantoja HAT BAND ATTACHER-C Work Phone: Comment on above: NEGATIVE FOR INTRAEP ITHELIAL LESION OR MALIGNANCY.THIS SPECIMEN WAS RESCREENED PART OF OUR TITLE I PARAPROFESSIONAL PROGRAM. This liquid based Th inPrep(R) pap test was screened withthe use of an image guided system. Start: 07-02-2021 Date of last papanic olaou test (observable entity) FELISHA ADELFO TRAFFIC REPORTER-REFUGE MANAGER Plan of Treatment Date Care Activity Detail Author Start: 01-28-2025 MG Breast - bilateral Screening [facility] MG Breast - bilateral Screening [facility] Immunizations Immunization Date Immunization Notes Care Provider Fa [facility] 04-21-2024 influenza, seasonal, injectable, preservative free Gosia Pantoja HAT BAND ATTACHER-C Work Phone: [facility] Payers Date Payer Category Payer Unknown [id number] 2024 Self-pay 2023 Unknown [id number] 1985 Unknown [id number] 2.16.8 [id number] 1985 Unknown [id number] 2.16.8 [id number] 1985 Unknown [id number] 2.16.8 [id number] Unknown [id number] Unknown [id number] 2.16.8 [id number] Unknown [id number] 2.16.8 [id number] Unknown [id number] 2.16.8 [id number] Social History Date Type Detail Facility Start: 05-14-2023 End: 01-14-2025 Tobacco smoking status Never smoked tobacco (finding) [facility] Sex Assigned At Sex [facility] Start: 1985 Sex Assigned At Female [facility] Evaluation note 01-14-2025 Note Date & Type Note Facility 01-14-2025 Evaluation note Diagnosis Onset Date Resolution Family history of breast cancer acute January 14, 2025 10:51am Women's annual routine gynecological examination acute January 14, 2025 10:51am [facility] Work Phone: Evaluation + Plan note Note Date & Type Note Facility Evaluation + Plan note No data available for this section [facility] Evaluation note Note Date & Type Note Facility Evaluation note Diagnosis Onset Date Resolution Family history of breast cancer acute January 14, 2025 10:51am Women's annual routine gynecological examination acute January 14, 2025 10:51am [facility] Work Phone: Hospital Discharge instructions Note Date & Type Note Facility Hospital Discharge instructions No data available for this section [facility] Progress note Note Date & Type Note Facility Progress note No data available for this section [facility] Reason for referral (narrative) Note Date & Type Note Facility Reason for referral (narrative) No reason for referral information available [employer] Work Phone: Summary Purpose Family History No Family History Records Found Relationship Condition Age at Onset Recorded Date/T arely mother Malignant neoplasm of breast 58 Cerebrovascular accident (CVA) Unknown father Diabetes mellitus Unknown grandmother Myocardial infarction Unknown Advance Directives No Advanced Directives Records FoundNo Advanced Directives Records FoundNo Advanced Directives Records Found Chief Complaint and Reason for Visit Chief Complaint Admit Date Annual ([employer]) *[facility] employee January 14 10:51am Reason for Visit Admit Date Family history of breast cancer December 10:51am Women's annual routine gynecological exa mination January 14, 2025 10:51am Additional Source Comments INFORMATION SOURCE (unrecogn ized section and content) DATE CREATED AUTHOR 08/21/2018 [facility] [place] DATE CREATED AUTHOR AUTHOR'S ORGANIZ ATION 10/07/2023 [facility] ([place]) DATE CREATED AUTHOR AUTHOR'S ORGANIZ ATION 01/27/2025 [facility] Patient Care team informatio n (unrecognized section and content) Team Status: Inactive Member Role/Relationship Status Dates LORI Hernandez Attending Provider Active Start: January 14, 2025 End: January 14, 2025 Team Status: Active Member Role/Relationship Status Dates No Primary Care Physician Primary Care Provider Active Team Status: Inactive Member Role/Relationship Status Dates LORI Hernandez Attending Provider Active Start: January 14, 2025 End: January 14, 2025 Team Status: Inactive Member Role/Relationship Status Dates LORI Hernandez Attending Provider Active Start: January 14, 2025 End: January 14, 2025 LORI Hernandez Referring Provider Active Start: January 14, 2025 End: January 14, 2025 Goals (unrecognized section and content) Goals may be documented in a n alternate section FOR RECORDS PERTAINING TO PATIENTS WHO ARE OR HAVE BEEN ENROLLED IN A CHEMICAL DEPENDENCY/SUBSTANCEABUSE PROGRAM, SOME INFORMATION MAY BE OMITTED. This clinical summary was aggregated from multiple sources. Caution should be exercised in using it in the provision of clinical care. This summary normalizes information from multiple sources, and as a consequence, information in this document may materially change the coding, format and clinical context of patient data. In addition, data may be omitted in some cases. CLINICAL DECISIONS SHOULD BE BASED ON THE PRIMARY CLINICAL RECORDS. [facility]. provides no warranty or guarantee of the accuracy or completeness of information in this document.
== END | disposition home or self-care (01) ==
LOC: OPBI 12:06
PROVIDERS: Referring Provider Nurse Practitioner Family; Visit Provider Nurse Practitioner Family
DX: Z12.31 Encounter for screening mammogram for malignant neoplasm of breast (principal)
CPT/HCPCS: 77063; 77067